=== PATIENT | female | born 1975 | race Caucasian/White ===

== ENCOUNTER 2019-12-09 12:24 | Outpatient (CLI) | payer OTHER, SELFPAY ==
--- NOTE | ~2019-12-09 | MMUS_ITS ---
EXAMINATION: MM diagnostic mammo BI, US breast BI complete HISTORY: Bilateral mammographic densities TECHNIQUE: Additional 3-D tomosynthesis images of both breasts were performed and synthetic 2-D image s were generated. CAD analysis was submitted and interpreted. High resolution breast ultrasound was p erformed. COMPARISON: None available from archive at this time BREAST PARENCHYMAL COMPOSITION: There are scattered areas of fibroglandular density. FINDINGS: MAMMOGRAPHIC FINDINGS: There are occasional bilateral low-density circumscribed subcentimeter mammographic opacities. Bilateral breast implants. No suspicious mass or architectural distortion is evident. ULTRASOUND: There are occasional scattered right breast simple and septated cysts measuring up to 6 mm. Clustered up to 4 mm cysts are noted at left breast 3:00 2 cm from nipple. Septated 6 mm x 4.5 x 2 mm cyst at left breast 7:00 3 cm from nipple. No suspicious solid lesion or shadowing of either breast is detected. IMPRESSION: 1. No mammographic evidence of malignancy 2. Routine mammographic screening is recommended. BI-RADS Category 2: Benign finding(s). Reviewed, dictated and finalized at location A. PROGRAM MANAGER IMPRESSION: 1. No mammographic evidence of malignancy 2. Routine mammographic screening is recommended. BI-RADS Category 2: Benign finding(s).
== END 2019-12-09 12:25 | disposition home or self-care (01) ==
LOC: ANHIMG 12:27
PROVIDERS: PCP Nurse Practitioner Family; Visit Provider Nurse Practitioner Family
DX: R92.8 Other abnormal and inconclusive findings on diagnostic imaging of breast (principal)
CPT/HCPCS: 76641; 77066

== ENCOUNTER 2020-07-14 14:14 | Outpatient (RCR) | payer OTHER, SELFPAY ==
--- NOTE | 2020-07-14 15:41 | OTOPEVAL ---
OCCUPATIONAL THERAPY EVALUATION REPORT & DISCHARGE NOTE 07/14/2020 Thank you for referring Minda Chang to [facility]– [place].?Patient presents to outpatient OT for evaluation of hand pain. Palmar pain symptoms appear to be consistent with Dupuytren's. At this time she has full ROM, but sensitivity noted on the nodules on her palms. Educated her on the 'tabletop' test and to follow up with her doctor if she finds herself unable to lay her hand flat. Dorsal hand pain appears to be a strain from her fall. Educated her on gentle AROM and use of heat for pain. At this time the patient verbalizes her understanding of all education and will plan to follow up with her doctor as needed. No further skilled OT indicated at this time. Please review, sign, date and return this discharge note SHERITA. I agree with and certify that the following plan of care is medically necessary. Referring Physician Date Referring Provider: DANO SUÁREZ, [employer] *OT Outpatient Evaluation Outpatient Past Medical History Past Medical History Source of Past Medical History Patient Musculoskeletal History Hx Degenerative Disk Disease Yes Hx Spinal Surgery Yes Evaluation Information Problem Diagnosis Right hand pain Onset about 3 months ago Cause fall Subjective Information Patient reports she fell Query Text:As Reported By Patient/ downhill onto her right hand/ Family wrist which got twisted under neath her. Four weeks later she went to urgent care for x- rays, which were negative and then made an appointment to see her doctor who ordered a nerve conduction. Nerve conduction study was negative. Prior Level of Function Activity Level (Last 3 Months) Occupation Administrative assistance Hand Dominance Right Cooking Yes Cleaning Yes Laundry Yes Shopping Yes Driving Yes Medications Takes Aleve for pain Comments Additional Prior Level of Function Patient reports that her hand Comments pain and tightness have not interrupted her ability to complete work tasks and household tasks, I work through it , she reports. She does all of her own housework and recently built a desk. She states that her hand was sore after using and gripping tools. She also notes pain with gripping a steering wheel. Pain Assessment Timing o
== END 2020-07-15 11:57 | disposition home or self-care (01) ==
LOC: ANHOT 14:14
PROVIDERS: PCP Nurse Practitioner Family; Visit Provider Nurse Practitioner Family
DX: S69.91XD Unspecified injury of right wrist, hand and finger(s), subsequent encounter (principal); M79.641 Pain in right hand; G89.29 Other chronic pain; G62.9 Polyneuropathy, unspecified
CPT/HCPCS: 97110; 97166

== ENCOUNTER 2022-07-26 16:44 | Outpatient (CLI) | payer BC, SELFPAY ==
--- NOTE | ~2022-07-26 | MM_ITS ---
EXAMINATION: MM scrn sonny implant BI w coleen HISTORY: Screening mammogram TECHNIQUE: Craniocaudal and mediolateral oblique 3-D tomosynthesis images with implant displacement a nd synthetic 2-D images were generated. Craniocaudal and mediolateral oblique views of the breasts wi thout implant displacement were obtained using full field digital mammography. CAD analysis was submi tted and interpreted. COMPARISON: diagnostic bilateral mammogram and bilateral complete breast ultrasound examin ation 11/26/2019 bilateral screening mammogram BREAST PARENCHYMAL COMPOSITION: There are scattered areas of fibroglandular density. FINDINGS: Status post bilateral augmentation mammoplasty. There is no evidence of suspicious mass, ca lcification, or architectural distortion to suggest malignancy in either breast. There has been no escobedo spicious interval change. IMPRESSION: 1. No mammographic evidence of malignancy. 2. Recommend routine screening mammography in one year. BI-RADS Category 1: Negative Reviewed, dictated and finalized at location A.
== END 2022-07-26 16:45 | disposition home or self-care (01) ==
PROVIDERS: PCP Nurse Practitioner Family; Visit Provider Nurse Practitioner Family
DX: Z12.31 Encounter for screening mammogram for malignant neoplasm of breast (principal)
CPT/HCPCS: 77063; 77067